=== PATIENT | male | born 1960 | race Caucasian/White ===

== ENCOUNTER 2016-06-19 23:21 | Emergency (ER) | payer OTHER ==
[~2016-06-19] VITALS: Ht 188 cm; Wt 93.6 kg
[~2016-06-19 23:21] MED LIST: BACT800T5 PO; CEPH-460 PO; LISI2.5T3 PO; MOTR200T4 PO
[2016-06-20 02:23] VITALS: BP 166/98; PULSE 94; RESP 12; TEMP 98.4; O2SAT 94
[2016-06-20 03:18] VITALS: BP 175/95; PULSE 82; RESP 12; TEMP 98.8; O2SAT 96
[2016-06-20 03:55] VITALS: BP 166/98; PULSE 94; RESP 18; TEMP 98.4; O2SAT 99
[2016-06-20] MEDS ORDERED: LISI-515 PO (03:56)
[2016-06-20] MEDS ORDERED: GLIP5TAB8 PO (03:56)
[2016-06-20] MEDS ORDERED: CLINDAMYCIN INJ 600 MG in SODIUM CHLORIDE 0.9% INJ 100 ML IV ONE (04:15)
[2016-06-20] MEDS ORDERED: ONDANSETRON HCL 4 MG/2 ML VIAL IV PUSH ONE (04:15)
[2016-06-20] MEDS ORDERED: SODIUM CHLOR 0.9% 1000 ML INJ 1,000 ML IV ONE (04:15)
[2016-06-20] MEDS ORDERED: KETOROLAC TROMETHAMINE 30 MG/ML (IVP) VIAL IVP ONE (04:15)
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
[2016-06-20 04:37] LABS: AUTOMATED NEUTROPHIL # 5.3 TH/MM3 (1.8-7.7); BASOPHIL # 0.3 TH/MM3 (0-0.2); BASOPHIL % 3.8 % (0.0-2.0); EOSINOPHIL # 0.4 TH/MM3 (0-0.4); EOSINOPHIL % 4.4 % (0.0-4.0); HEMATOCRIT 38.1 % (39.0-51.0); HEMO FLAGS DIFF FINAL; LYMPH % 23.8 % (9.0-44.0); MEAN CELL VOLUME 87.3 FL (80.0-100.0); MEAN CORPUSCULAR HGB CONC 34.3 % (32.0-36.0); MONO % 5.6 % (0.0-8.0); NEUT % 62.4 % (16.0-70.0); PLATELET COUNT 211 TH/MM3 (150-450); RED BLOOD COUNT 4.36 MIL/MM3 (4.50-5.90); RED CELL DISTRIBUTION WIDTH 13.4 % (11.6-17.2); WHITE BLOOD COUNT 8.5 TH/MM3 (4.0-11.0)
[2016-06-20 04:47] LABS: BICARBONATE 24.6 MEQ/L (21.0-32.0)
--- NOTE | 2016-06-20 04:53 | RADHPO ---
EXAM DATE/TIME: 06/20/2016 04:30 [facility] COMPARISON: FOOT LEFT COMPLETE ([id number]), February 19, 2016, 19:05. INDICATIONS : Open sores on left foot for over 6 months. Pain on dorsal surface of foot. MEDICAL HISTORY : Diabetes mellitus type II. Gout SURGICAL HISTORY : None. ENCOUNTER: Initial ACUITY: 4 - 6 months PAIN SCORE: 10/10 LOCATION: Left dorsal surface of foot FINDINGS: Two view examination of the left foot demonstrates diffuse soft tissue swelling. Arthritic changes of the midfoot and hindfoot. There is cortical thickening of the 2 through 5 metatarsals. There is irre gularity of the metatarsal heads greater 4 and 5. There is minimal fracture at the base of the fifth metatarsal, unchanged. CONCLUSION: 1. Nonspecific arthritic changes of the midfoot and hindfoot. 2. Minimal fracture at the base of the fifth metatarsal, unchanged. 3. Cortical thickening of the metatarsals likely stress phenomenon. Pradeep Keith MD on June 20, 2016 at 4:47 Board Certified Radiologist. This report was verified electronically.
[2016-06-20] MEDS ORDERED: POTASSIUM CHLORIDE 20 MEQ CONTROLLED RELEASE TAB PO ONE (05:30)
[2016-06-20] MEDS ORDERED: EXTR500C PO (06:03)
[2016-06-20] MEDS ORDERED: CLIN1CAP6 PO (06:03)
[2016-06-20 06:28] VITALS: BP 165/92; PULSE 84; RESP 18; O2SAT 97
--- NOTE | 2016-06-20 19:37 | EKG ---
Date Performed: 06/20/2016 Time Performed: 04:07:14 PTAGE: 55 years EKG: --- Warning: Data quality may affect interpretation --- Sinus rhythm . Consider left atrial abnormality Leftward axis Compared to prior tracing no significant change Bord lenka ECG PREVIOUS TRACING : 05/04/2016 16.55 DOCTOR: Simon Walters Interpretating Date/Time 06/20/2016 19:35:54
[2016-08-16] MEDS ORDERED: GLIP5TAB8 PO ×2 (13:18→13:19)
== END 2016-06-20 06:32 | disposition home or self-care (01) ==
LOC: PHED 23:21
DX: L03.116 Cellulitis of left lower limb (principal); B96.4 Proteus (mirabilis) (morganii) as the cause of diseases classified elsewhere; E11.40 Type 2 diabetes mellitus with diabetic neuropathy, unspecified; E11.621 Type 2 diabetes mellitus with foot ulcer; I10 Essential (primary) hypertension; Z79.84 Long term (current) use of oral hypoglycemic drugs
CPT/HCPCS: 73620; 80048; 85025; 85652; 86140; 87040; 87070; 87077; 87186; 93005; 96361; 96374; 96375; 99284; J1885; J2405; J7030

== ENCOUNTER 2016-06-23 20:49 | Emergency (ER) | payer OTHER ==
[~2016-06-23] VITALS: Ht 188 cm; Wt 91.2 kg
[~2016-06-23 20:49] MED LIST changes: -BACT800T5 PO; -CEPH-460 PO; +CLIN1CAP6 PO; +EXTR500C PO; +GLIP5TAB8 PO; +LISI-515 PO; -LISI2.5T3 PO; -MOTR200T4 PO
[2016-06-23 20:56] VITALS: BP 184/105; PULSE 84; RESP 20; TEMP 98.2; O2SAT 98
[2016-06-23 21:17] VITALS: BP 162/98; PULSE 82; RESP 18; TEMP 98.8; O2SAT 100
[2016-06-23] MEDS ORDERED: TRAM50TA PO (22:26)
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
[2016-08-16] MEDS ORDERED: GLIP5TAB8 PO ×2 (13:18→13:19)
== END 2016-06-23 22:41 | disposition home or self-care (01) ==
LOC: PHED 20:49 → PHEFT 22:41
DX: E11.621 Type 2 diabetes mellitus with foot ulcer (principal); I10 Essential (primary) hypertension; E11.40 Type 2 diabetes mellitus with diabetic neuropathy, unspecified; E78.00 Pure hypercholesterolemia, unspecified; Z79.84 Long term (current) use of oral hypoglycemic drugs; Z87.19 Personal history of other diseases of the digestive system; Z86.69 Personal history of other diseases of the nervous system and sense organs
CPT/HCPCS: 99282

== ENCOUNTER 2016-08-01 18:22 | Emergency (ER) | payer OTHER ==
[~2016-08-01] VITALS: Ht 188 cm; Wt 92.3 kg
[~2016-08-01 18:22] MED LIST changes: -CLIN1CAP6 PO; -EXTR500C PO; +TRAM50TA PO
[2016-08-01 18:43] VITALS: BP 165/106; PULSE 90; RESP 16; TEMP 98.7; O2SAT 99
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
[2016-08-01 22:05] VITALS: BP 186/100; PULSE 75; RESP 18; O2SAT 97
--- NOTE | 2016-08-01 22:39 | RADHPO ---
EXAM DATE/TIME: 08/01/2016 22:18 [facility] COMPARISON: FOOT LEFT LIMITED (2VWS), June 20, 2016, 4:30. INDICATIONS : Pain and swelling of left foot. Patient has a infection on plantar surface and lateral surface of le ft foot. MEDICAL HISTORY : Diabetes mellitus type II. SURGICAL HISTORY : None. ENCOUNTER: Initial ACUITY: >1 year PAIN SCORE: 8/10 LOCATION: Left foot FINDINGS: Overall appearance of the left foot is unchanged other than diminished soft tissue swelling dorsally. Arthritic changes of the midfoot and hindfoot are appreciated with cortical thickening of the metata rsals and the fracture base of the fifth metatarsal is healed. There is deformity of the articulation of the distal tarsal bones cuneiform and cuboid with the proximal metatarsals unchanged there CONCLUSION: Fracture base of the fifth metatarsal is healed. Chronic changes otherwise stable. Mark Diana MD on August 01, 2016 at 22:36 Board Certified Radiologist. This report was verified electronically.
[2016-08-01 23:20] VITALS: BP 163/95; PULSE 79; RESP 18; O2SAT 99
[2016-08-01] MEDS ORDERED: AMOX500C PO (23:20)
[2016-08-01] MEDS ORDERED: BACT800T5 PO (23:20)
[2016-08-01] MEDS ORDERED: SULFAMETHOXAZOLE-TRIMETHOPRIM DS 800-160 MG TAB PO ONE (23:30)
[2016-08-01] MEDS ORDERED: AMOXICILLIN/CLAVULANATE K 875 MG TAB PO ONE (23:30)
[2016-08-16] MEDS ORDERED: GLIP5TAB8 PO ×2 (13:18→13:19)
== END 2016-08-01 23:58 | disposition home or self-care (01) ==
LOC: PHED 18:22
DX: L03.116 Cellulitis of left lower limb (principal); I10 Essential (primary) hypertension; E78.00 Pure hypercholesterolemia, unspecified; Z91.14 Patient's other noncompliance with medication regimen; Z79.4 Long term (current) use of insulin
CPT/HCPCS: 73630; 86403; 87070; 87077; 87205; 99283

== ENCOUNTER 2016-08-04 15:42 | Inpatient (IN) | payer OTHER ==
[~2016-08-04] VITALS: Ht 188 cm; Wt 92.1 kg
[2016-08-04] VITALS (8 sets, daily range): BP systolic 132–194; BP diastolic 64–99; PULSE 93–111; RESP 18–20; TEMP 98.5–100.2; O2SAT 94–98
[~2016-08-04 15:42] MED LIST changes: +AMOX500C PO; +BACT800T5 PO; -TRAM50TA PO
[2016-08-04 16:26] LABS: BLOOD GAS VENOUS BASE EXCESS 2.2 mmol/L (-2-2); BLOOD GAS VENOUS HCO3 27 mmol/L (22-26); BLOOD GAS VENOUS O2 CONTENT 9.7 Vol % (9.0-17.0); BLOOD GAS VENOUS O2 HGB SAT 49 % (70-76); BLOOD GAS VENOUS PCO2 49 mmHg (44-48); BLOOD GAS VENOUS PO2 30 mmHg (35-40); BLOOD GAS VENOUS pH 7.36 (7.360-7.400); CRITICAL VALUE NO; TEMP CORR TO 98.6
[2016-08-04 16:27] LABS: DRAW SITE LT BRACHIAL; FIO2 21 %; STAT YES
[2016-08-04 16:33] LABS: AUTOMATED NEUTROPHIL # 5.8 TH/MM3 (1.8-7.7); BASOPHIL # 0.3 TH/MM3 (0-0.2); BASOPHIL % 4.5 % (0.0-2.0); BLOOD, URINE TRACE (NEG); EOSINOPHIL # 0.2 TH/MM3 (0-0.4); EOSINOPHIL % 2.6 % (0.0-4.0); HEMO FLAGS DIFF FINAL; KETONE, URINE NEG (NEG); LYMPH % 8.5 % (9.0-44.0); LYMPHOCYTE # 0.6 TH/MM3 (1.0-4.8); MEAN CELL VOLUME 86.4 FL (80.0-100.0); MEAN CORPUSCULAR HEMOGLOBIN 29.6 PG (27.0-34.0); MEAN CORPUSCULAR HGB CONC 34.3 % (32.0-36.0); MONO % 5.7 % (0.0-8.0); NEUT % 78.7 % (16.0-70.0); NITRITE,URINE NEG (NEG); PH, URINE 6.5 (5.0-8.5); PLATELET COUNT 170 TH/MM3 (150-450); RED BLOOD COUNT 4.75 MIL/MM3 (4.50-5.90); RED CELL DISTRIBUTION WIDTH 12.5 % (11.6-17.2); WHITE BLOOD COUNT 7.3 TH/MM3 (4.0-11.0)
[2016-08-04] MEDS: SODIUM CHLOR 0.9% 1000 ML INJ 1,000 ML IV SCH ×3 (16:33→21:07)
[2016-08-04 16:40] LABS: GLUCOSE,URINE 1000 OR GREATER mg/dL (NEG)
[2016-08-04 16:41] LABS: METHOD OF COLLECTION CLEAN CATCH
[2016-08-04 16:42] LABS: COMMENT (UR) CULT NOT INDICATED; CULTURE IF INDICATED CULT NOT INDICATED; RBC, URINE 0-3 /hpf (0-3); SQUAMOUS EPITHELIAL CELL URINE 0-5 /hpf (0-5); URINE COLOR STRAW (YELLW/STRAW)
[2016-08-04 17:02] LABS: CHLORIDE 104 MEQ/L (98-107); SODIUM (NA) 136 MEQ/L (136-145)
[2016-08-04 17:04] LABS: POTASSIUM 4.5 MEQ/L (3.5-5.1)
[2016-08-04 17:22] LABS: ALT (GPT) 27 U/L (12-78); ANION GAP 8 MEQ/L (5-15); AST (GOT) 32 U/L (15-37); BLOOD UREA NITROGEN 11 MG/DL (7-18); MAGNESIUM 1.9 MG/DL (1.5-2.5)
[2016-08-04 17:23] LABS: BETA-HYDROXYBUTYRATE 0.14 MMOL/L (0.00-0.39); GLOMERULAR FILTRATION RATE 80 ML/MIN (>89); TOTAL BILIRUBIN ADULT 0.9 MG/DL (0.2-1.0)
[2016-08-04 17:25] LABS: ALKALINE PHOSPHATASE 120 U/L (45-117)
[2016-08-04] MEDS ORDERED: LISINOPRIL 20 MG TAB PO ONE (18:00)
[2016-08-04] MEDS ORDERED: INSULIN HUMAN REGULAR 1,000 UNITS/10 ML VIAL SQ ONE (18:00)
[2016-08-04] MEDS ORDERED: CLINDAMYCIN INJ 600 MG in SODIUM CHLORIDE 0.9% INJ 100 ML IV ONE (18:15)
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
[2016-08-04] MEDS ORDERED: ACETAMINOPHEN 325 MG TAB PO ONE (18:45)
--- NOTE | 2016-08-04 18:46 | RADHPO ---
EXAM DATE/TIME: 08/04/2016 18:26 [facility] COMPARISON: FOOT LEFT LIMITED (2VWS), June 20, 2016, 4:30. INDICATIONS : Left foot pain today, history of non healing diabetic ulcers left foot MEDICAL HISTORY : Diabetes mellitus type II. diabetic ulcers, left foot fracture SURGICAL HISTORY : None. ENCOUNTER: Initial ACUITY: 1 day PAIN SCORE: 6/10 LOCATION: Left foot FINDINGS: Two view examination of the left foot demonstrates soft tissue swelling. There is an ulcer along the lateral left foot. No lytic destructive process. Cortical thickening involving the metatarsals 2 thro ugh 5 again seen. Minimal deformities of the fourth and fifth metatarsal heads again seen. Lucency in the base of the fifth metatarsal again seen. CONCLUSION: Soft tissue swelling with ulcer along the lateral left foot. Overall no change. Pradeep Keith MD on August 04, 2016 at 18:43 Board Certified Radiologist. This report was verified electronically.
[2016-08-04] MEDS ORDERED: SODIUM CHLOR 0.9% 1000 ML INJ 1,000 ML IV ONE (19:30)
[2016-08-04] MEDS ORDERED: GLUCAGON 1 MG/ML VIAL OTHER PRN (19:45)
[2016-08-04] MEDS ORDERED: DEXTROSE 50% IN WATER 50 ML VIAL(D50) IV PUSH PRN (19:45)
[2016-08-04] MEDS ORDERED: MORPHINE SULFATE 4 MG/ML INJ IV PRN (19:45)
[2016-08-04] MEDS ORDERED: ONDANSETRON HCL 4 MG/2 ML VIAL IVP PRN (19:45)
[2016-08-04] MEDS ORDERED: BISACODYL 10 MG SUPP PR PRN (19:45)
[2016-08-04] MEDS: SODIUM CHLORIDE 0.9% FLUSH 5 ML FLUSH FLUSH SCH (21:07)
[2016-08-04] MEDS: CEFEPIME INJ 1,000 MG in SODIUM CHLORIDE 0.9% INJ 100 ML IV SCH (21:07)
[2016-08-04] MEDS: HEPARIN SODIUM - SQ 10,000 UNITS/ML VIAL SQ SCH (21:08)
[2016-08-04] MEDS: INSULIN ASPART SUPPLEMENTAL SCALE SQ SCH (21:13)
[2016-08-04] MEDS: ACETAMINOPHEN/HYDROcodone 325 MG/5 MG TAB PO PRN (22:15)
[2016-08-05] VITALS (8 sets, daily range): BP systolic 144–190; BP diastolic 80–103; PULSE 70–111; RESP 18–20; TEMP 98.1–102.6; O2SAT 94–97
[2016-08-05] MEDS: CLINDAMYCIN INJ 900 MG in SODIUM CHLORIDE 0.9% INJ 100 ML IV SCH ×3 (01:06→18:49)
[2016-08-05] MEDS: ACETAMINOPHEN/HYDROcodone 325 MG/5 MG TAB PO PRN ×4 (05:55→20:52)
[2016-08-05] MEDS: SODIUM CHLOR 0.9% 1000 ML INJ 1,000 ML IV SCH ×3 (05:56→20:42)
[2016-08-05] MEDS: INSULIN ASPART SUPPLEMENTAL SCALE SQ SCH ×4 (05:57→20:51)
[2016-08-05 06:54] LABS: BASOPHIL % 0.2 % (0.0-2.0); EOSINOPHIL % 0.9 % (0.0-4.0); LYMPH % 7.1 % (9.0-44.0); LYMPHOCYTE # 0.3 TH/MM3 (1.0-4.8); MEAN CELL VOLUME 87.4 FL (80.0-100.0); MEAN CORPUSCULAR HEMOGLOBIN 30.5 PG (27.0-34.0); MONO % 7.6 % (0.0-8.0); NEUT % 84.2 % (16.0-70.0); RED BLOOD COUNT 4.01 MIL/MM3 (4.50-5.90); RED CELL DISTRIBUTION WIDTH 12.8 % (11.6-17.2); WHITE BLOOD COUNT 4.7 TH/MM3 (4.0-11.0)
[2016-08-05 07:01] LABS: HEMO FLAGS DIFF FINAL; PLATELET COUNT 137 TH/MM3 (150-450)
[2016-08-05 07:12] LABS: ALKALINE PHOSPHATASE 109 U/L (45-117); ALT (GPT) 34 U/L (12-78); ANION GAP 9 MEQ/L (5-15); AST (GOT) 38 U/L (15-37); BICARBONATE 22.9 MEQ/L (21.0-32.0); BLOOD UREA NITROGEN 7 MG/DL (7-18); CHLORIDE 107 MEQ/L (98-107); GLOMERULAR FILTRATION RATE 112 ML/MIN (>89); POTASSIUM 3.5 MEQ/L (3.5-5.1); SODIUM (NA) 139 MEQ/L (136-145); TOTAL BILIRUBIN ADULT 1.2 MG/DL (0.2-1.0)
[2016-08-05] MEDS: CEFEPIME INJ 1,000 MG in SODIUM CHLORIDE 0.9% INJ 100 ML IV SCH ×2 (08:03→20:40)
[2016-08-05] MEDS: SODIUM CHLORIDE 0.9% FLUSH 5 ML FLUSH FLUSH SCH ×2 (08:04→20:39)
[2016-08-05] MEDS: HEPARIN SODIUM - SQ 10,000 UNITS/ML VIAL SQ SCH ×2 (08:04→20:39)
[2016-08-05] MEDS: ACETAMINOPHEN 325 MG TAB PO PRN ×2 (10:45→16:35)
--- NOTE | 2016-08-05 12:39 | EKG ---
Date Performed: 08/04/2016 Time Performed: 16:30:36 PTAGE: 55 years EKG: Sinus tachycardia Normal ECG except for rate Compared to prior tracing no significant federica plummer PREVIOUS TRACING : 06/20/2016 04.07 DOCTOR: Guzman Lennon Interpretating Date/Time 08/05/2016 12:35:53
--- NOTE | 2016-08-05 13:15 | HHI.HP ---
cc: Albina Norris MD [facility] Primary Care Physician Albina Norris MD Admission Diagnosis Sepsis secondary to left foot cellulitis Diagnoses: Chief Complaint: Left foot infection and fever Travel History International Travel<30 Days: No Contact w/Intl Traveler <30 Da: No Traveled to Known Affected Are: No Sepsis Criteria SIRS Criteria (2 or more): Temp > 100.9 or < 96.8, Heart rate over 90, RR > 20 or PaCO2 < 32 Sepsis Criteria (SIRS+source): Infect source susp/known Criteria Outcome: Meets sepsis criteria History of Present Illness This patient is a 55 year-old gentleman who presents to the emergency room with chronic left foot infection for the last 2 years but today has had increasing fever and pain. The patient has poor adherence to medical treatment planning. He has not filled his antibiotics which were prescribed in his emergency room visit a few days ago. He does not see his medical front desk coordinator. Patient has also complained of sore throat and has a fever 101.7 today. Patient does not have leukocytosis and has had tachycardia and some tachypnea while he was here. Patient is admitted through the emergency room for signs and symptoms of sepsis likely secondary to his foot versus upper respiratory tract symptoms. Patient did have cough with sore throat and has had difficulty swallowing because of this. He is not homeless but does have difficulty with transportation and depends on friends to take him to appointments and to run errands. He has been walking on his left foot despite recommendations to wear his cam boot in the past. Patient is admitted to the hospital for these reasons Review of Systems Constitutional: COMPLAINS OF: Fatigue, Fever, DENIES: Diaphoretic episodes, Weight gain, Weight loss, Chills, Dizziness, Change in appetite, Night Sweats Endocrine: DENIES: Heat/cold intolerance, Polydipsia, Polyuria, Polyphagia Eyes: DENIES: Blurred vision, Diplopia, Eye inflammation, Eye pain, Vision loss , Photosensitivity, Double Vision Ears, nose, mouth, throat: DENIES: Tinnitus, Hearing loss, Vertigo, Nasal discharge, Oral lesions, Throat pain, Hoarseness, Ear Pain, Running Nose, Epistaxis, Sinus Pain, Toothache, Odynophagia Respiratory: COMPLAINS OF: Cough, DENIES: Apneas, Snoring, Wheezing, Hemoptysis, Sputum production Cardiovascular: DENIES: Chest pain, Palpitations, Syncope, Dyspnea on Exertion , PND, Lower Extremity Edema, Orthopnea, Claudication Gastrointestinal: DENIES: Abdominal pain, Black stools, Bloody stools, Constipation, Diarrhea, Nausea, Vomiting, Difficulty Swallowing, Anorexia Genitourinary: DENIES: Sexual dysfunction, Urinary frequency, Urinary incontinence, Urgency, Hematuria, Dysuria, Nocturia, Penile Discharge, Testicular Pain, Testicular Swelling Musculoskeletal: DENIES: Joint pain, Muscle aches, Stiffness, Joint Swelling, Back pain, Neck pain Integumentary: DENIES: Abnormal pigmentation, Nail changes, Pruritus, Rash Hematologic/lymphatic: DENIES: Bruising, Lymphadenopathy Immunologic/allergic: DENIES: Eczema, Urticaria Neurologic: DENIES: Abnormal gait, Headache, Localized weakness, Paresthesias, Seizures, Speech Problems, Tremor, Poor Balance Psychiatric: DENIES: Anxiety, Confusion, Mood changes, Depression, Hallucinations, Agitation, Suicidal Ideation, Homicidal Ideation, Delusions Past Family Social History Past Medical History Diabetes Left foot ulcer for 2 years Hypertension Past Surgical History Craniotomy Reported Medications Reviewed in the medical record, on amoxicillin recently Allergies: Coded Allergies: No Known Allergies (Verified , 08/04/16) Active Ordered Medications Reviewed in the medical record Family History Mother of lung cancer, father had lung cancer Social History No current tobacco or alcohol dependency, lives alone Physical Exam Vital Signs Vital Signs Date Time Temp Pulse Resp B/P Pulse Ox O2 Delivery O2 Flow Rate FiO2 08/05/16 12:00 100.2 102 20 148/88 96 08/05/16 10:30 101.7 08/05/16 08:00 98.9 98 20 154/85 96 08/05/16 04:00 98.1 70 18 144/80 97 08/05/16 00:00 99.9 96 20 156/96 97 08/04/16 21:39 95 08/04/16 21:30 98.5 93 20 148/81 98 08/04/16 19:50 132/64 08/04/16 19:44 99.8 104 146/73 94 Room Air 08/04/16 18:36 100.2 111 20 177/93 98 08/04/16 17:35 110 20 192/99 98 08/04/16 16:34 109 20 194/97 97 08/04/16 15:45 99.5 108 18 188/94 98 Physical Exam GENERAL: This is a well-nourished, well-developed patient, who is ill-appearing. SKIN: No rashes, ecchymoses or lesions. Cool and dry. HEAD: Atraumatic. Normocephalic. No temporal or scalp tenderness. EYES: Pupils equal round and reactive. Extraocular motions intact. No scleral icterus. No injection or drainage. ENT: Nose without bleeding, purulent drainage or septal hematoma. Throat without erythema, tonsillar hypertrophy or exudate. Uvula midline. Airway patent. NECK: Trachea midline. No JVD or lymphadenopathy. Supple, nontender, no meningeal signs. CARDIOVASCULAR: Regular rate and rhythm without murmurs, gallops, or rubs. RESPIRATORY: Clear to auscultation. Breath sounds equal bilaterally. No wheezes , rales, or rhonchi. GASTROINTESTINAL: Abdomen soft, non-tender, nondistended. No hepato-splenomegaly , or palpable masses. No guarding. MUSCULOSKELETAL: Left foot erythema notable and swelling notable. Patient with difficulty ambulating on the foot. Other 3 Extremities without clubbing, cyanosis, or edema. No joint tenderness, effusion, or edema noted. No calf tenderness. Negative Homans sign bilaterally. NEUROLOGICAL: Awake and alert. Cranial nerves II through XII intact. Motor and sensory grossly within normal limits. Five out of 5 muscle strength in all muscle groups. Normal speech. Laboratory Laboratory Tests Test 08/04/16 08/04/16 08/04/16 08/04/16 16:20 16:21 16:40 19:40 White Blood Count 7.3 Red Blood Count 4.75 Hemoglobin 14.1 Hematocrit 41.0 Mean Corpuscular Volume 86.4 Mean Corpuscular Hemoglobin 29.6 Mean Corpuscular Hemoglobin 34.3 Concent Red Cell Distribution Width 12.5 Platelet Count 170 Mean Platelet Volume 9.6 Neutrophils (%) (Auto) 78.7 Lymphocytes (%) (Auto) 8.5 Monocytes (%) (Auto) 5.7 Eosinophils (%) (Auto) 2.6 Basophils (%) (Auto) 4.5 Neutrophils # (Auto) 5.8 Lymphocytes # (Auto) 0.6 Monocytes # (Auto) 0.4 Eosinophils # (Auto) 0.2 Basophils # (Auto) 0.3 CBC Comment DIFF FINAL Differential Comment Urine Collection Type CLEAN CATCH Urine Color STRAW Urine Turbidity CLEAR Urine pH 6.5 Urine Specific [place] 1.030 Urine Protein TRACE Urine Glucose (UA) 1000 OR GREATER Urine Ketones NEG Urine Occult Blood TRACE Urine Nitrite NEG Urine Bilirubin NEG Urine Leukocyte Esterase NEG Urine RBC 0-3 Urine Squamous Epithelial 0-5 Cells Microscopic Urinalysis Comment CULT NOT INDICATED Urine Collection Time 1600 Blood Gas Puncture Site LT BRACHIAL Blood Gas Patient Temperature 98.6 Venous Blood pH 7.36 Venous Blood Partial Pressure 49 CO2 Venous Blood Partial Pressure 30 O2 Venous Blood HCO3 27 Venous Blood Oxygen Saturation 49 Venous Blood Oxygen Content 9.7 Venous Blood Base Excess 2.2 Oxygen Delivery Device NONE Blood Gas Inspired Oxygen 21 Sodium Level 136 Potassium Level 4.5 Chloride Level 104 Carbon Dioxide Level 24.0 Anion Gap 8 Blood Urea Nitrogen 11 Creatinine 0.97 Estimat Glomerular Filtration 80 Rate Random Glucose 329 Calcium Level 8.3 Phosphorus Level 2.6 Magnesium Level 1.9 Total Bilirubin 0.9 Aspartate Amino Transf 32 (AST/SGOT) Alanine Aminotransferase 27 (ALT/SGPT) Alkaline Phosphatase 120 Troponin I LESS THAN 0.02 Total Protein 7.9 Albumin 3.4 Lipase 78 B-Hydroxybutyrate 0.14 Lactic Acid Level 1.2 Test 08/05/16 05:40 White Blood Count 4.7 Red Blood Count 4.01 Hemoglobin 12.3 Hematocrit 35.0 Mean Corpuscular Volume 87.4 Mean Corpuscular Hemoglobin 30.5 Mean Corpuscular Hemoglobin 35.0 Concent Red Cell Distribution Width 12.8 Platelet Count 137 Mean Platelet Volume 9.6 Neutrophils (%) (Auto) 84.2 Lymphocytes (%) (Auto) 7.1 Monocytes (%) (Auto) 7.6 Eosinophils (%) (Auto) 0.9 Basophils (%) (Auto) 0.2 Neutrophils # (Auto) 4.0 Lymphocytes # (Auto) 0.3 Monocytes # (Auto) 0.4 Eosinophils # (Auto) 0.0 Basophils # (Auto) 0.0 CBC Comment DIFF FINAL Differential Comment Sodium Level 139 Potassium Level 3.5 Chloride Level 107 Carbon Dioxide Level 22.9 Anion Gap 9 Blood Urea Nitrogen 7 Creatinine 0.73 Estimat Glomerular Filtration 112 Rate Random Glucose 212 Calcium Level 7.9 Total Bilirubin 1.2 Aspartate Amino Transf 38 (AST/SGOT) Alanine Aminotransferase 34 (ALT/SGPT) Alkaline Phosphatase 109 Total Protein 6.8 Albumin 3.1 Date/Time Procedure Status Source Growth 08/04/16 18:20 Aerobic Blood Culture - Preliminary Resulted Blood Peripheral NO GROWTH IN 1 DAY 08/04/16 18:20 Anaerobic Blood Culture - Preliminary Resulted Blood Peripheral NO GROWTH IN 1 DAY Result Diagram: 08/05/16 0540 08/05/16 0540 Imaging Last Impressions Foot X-Ray 08/04/16 0000 Signed Impressions: Service Date/Time: Thursday, August 04, 2016 18:26 - CONCLUSION: Soft tissue swelling with ulcer along the lateral left foot. Overall no change. Pradeep Keith MD Assessment and Plan Problem List: (1) Diabetic ulcer of left foot ICD Code: E11.621 Status: Chronic Plan: Continue Zosyn Follow-up with podiatry MRI of the foot pending to rule out osteomyelitis (2) Sepsis ICD Code: A41.9 Status: Resolved Plan: likely due to left foot cellulitis v viral syndrome Cont empiric cefepime and clindamycin, add Zosyn (3) Diabetes ICD Code: E11.9 Status: Acute Plan: We'll continue with glipizide, sliding scale as needed hg a1c pending Physician Certification 2 Midnight Certification Type: Admission for Inpatient Services Order for Inpatient Services The services are ordered in accordance with Medicare regulations or non- Medicare payer requirements, as applicable. In the case of services not specified as inpatient-only, they are appropriately provided as inpatient services in accordance with the 2-midnight benchmark. Estimated LOS (days): 3 3 days is the estimated time the patient will need to remain in the hospital, assuming treatment plan goals are met and no additional complications. Post-Hospital Plan: Home Problem Qualifiers (1) Sepsis: Qualified Code: A41.9 - Sepsis, due to unspecified organism Hawa Flores MD Aug 05, 2016 13:15
[2016-08-05 14:16] LABS: AUTOMATED NEUTROPHIL # 4.9 TH/MM3 (1.8-7.7); BASOPHIL % 0.4 % (0.0-2.0); EOSINOPHIL % 0.1 % (0.0-4.0); HEMATOCRIT 35.2 % (39.0-51.0); HEMO FLAGS DIFF FINAL; LYMPH % 9.1 % (9.0-44.0); LYMPHOCYTE # 0.5 TH/MM3 (1.0-4.8); MEAN CELL VOLUME 87.9 FL (80.0-100.0); MEAN CORPUSCULAR HEMOGLOBIN 29.7 PG (27.0-34.0); MEAN CORPUSCULAR HGB CONC 33.7 % (32.0-36.0); MONO % 4.7 % (0.0-8.0); NEUT % 85.7 % (16.0-70.0); PLATELET COUNT 120 TH/MM3 (150-450); RED BLOOD COUNT 4.01 MIL/MM3 (4.50-5.90); RED CELL DISTRIBUTION WIDTH 13.2 % (11.6-17.2); WHITE BLOOD COUNT 5.7 TH/MM3 (4.0-11.0)
[2016-08-05] MEDS: PIPERACIL-TAZO 4.5 GM PREMIX 100 ML IV SCH ×2 (15:35→23:14)
[2016-08-05] MEDS: guaiFENesin/DEXTROMETHORPHAN 200 MG/20 MG/10 ML CUP PO PRN (17:13)
[2016-08-05 17:22] LABS: HEMOGLOBIN A1b 0.7 %; HEMOGLOBIN LA1C 2.3 %; HEMOGLOBIN P3 4.1 %
--- NOTE | 2016-08-05 18:34 | RADHPO ---
EXAM DATE/TIME: 08/05/2016 16:49 [facility] COMPARISON: No previous studies available for comparison. INDICATIONS : Short of breath. MEDICAL HISTORY : None. SURGICAL HISTORY : None. ENCOUNTER: Subsequent ACUITY: 1 week PAIN SCORE: 5/10 LOCATION: Bilateral upper chest. FINDINGS: There is moderate peribronchial thickening present. There is minimal air space disease present in both lung bases. The heart and pulmonary vascularity are normal. Portion of the bony ske leton visualized is unremarkable. CONCLUSION: 1. Moderate peribronchial thickening as described above. 2. Patchy air space disease in both lung bases. Luca Tello MD FACR on August 05, 2016 at 17:03 Board Certified Radiologist. This report was verified electronically.
[2016-08-05] MEDS ORDERED: MUPIROCIN 2% OINT 22 GM TUBE TOPICAL ONE (19:30)
[2016-08-05] MEDS: LISINOPRIL 20 MG TAB PO SCH (20:51)
[2016-08-05] MEDS ORDERED: IOHEXOL 350 MG/ML 10 ML VIAL (for RAD DIAG) IV ONE (22:03)
--- NOTE | 2016-08-05 23:10 | RADHPO ---
EXAM DATE/TIME: 08/05/2016 21:33 [place] COMPARISON: CT FOOT LEFT W CONTRAST, October 06, 2015, 13:00. INDICATIONS : Left foot osteomyelitis IV CONTRAST: 67 cc Omnipaque 350 (iohexol) IV RADIATION DOSE: 6.11 CTDIvol (mGy) MEDICAL HISTORY : Hypertension. Diabetes mellitus type 1. SURGICAL HISTORY : None. ENCOUNTER: Initial ACUITY: 1 day PAIN SCALE: 5/10 LOCATION: Left foot TECHNIQUE: Volumetric scanning of the foot was performed. Using automated exposure control and adjustment of th e mA and/or kV according to patient size, radiation dose was kept as low as reasonably achievable to obtain optimal diagnostic quality images. FINDINGS: Comparison is October 06, 2015. There is a focal area of soft tissue swelling in the lateral foot mostl y overlying the base of the fifth metatarsal characteristic of cellulitis. No discrete or drainable f luid collections are present. There is a remote fracture of the proximal left fifth metatarsal with a residual angular deformity and periosteal new bone formation that is similar to September 2015. No new b aviva destructive changes are seen to suggest osteomyelitis. There is advanced chronic arthropathy damien cially of the midfoot and hindfoot involving the subtalar joint and intertarsal joints. This is also similar to previous examination. No new fracture or dislocation. CONCLUSION: 1. Cellulitis of the lateral foot without focal bony destruction seen. No CT evidence for acute osteo myelitis. 2. Chronic arthropathy of the left foot with remote healed fracture of proximal fifth metatarsal. Malik Alvarenga MD on August 05, 2016 at 22:59 Board Certified Radiologist. This report was verified electronically.
[2016-08-05] MEDS: SODIUM CHLORIDE 0.9% FLUSH 5 ML FLUSH FLUSH PRN (23:14)
[2016-08-06] VITALS: BP 155/83; PULSE 98; RESP 20; TEMP 100.8; O2SAT 91
[2016-08-06] MEDS: CLINDAMYCIN INJ 900 MG in SODIUM CHLORIDE 0.9% INJ 100 ML IV SCH (01:54)
[2016-08-06] MEDS: SODIUM CHLORIDE 0.9% FLUSH 5 ML FLUSH FLUSH PRN ×4 (01:57→23:51)
[2016-08-06] MEDS: ACETAMINOPHEN/HYDROcodone 325 MG/5 MG TAB PO PRN ×3 (02:55→20:59)
[2016-08-06 04:00] VITALS: BP 146/80; PULSE 93; RESP 18; TEMP 99.8; O2SAT 92
[2016-08-06] MEDS: PIPERACIL-TAZO 4.5 GM PREMIX 100 ML IV SCH ×3 (06:17→23:49)
[2016-08-06] MEDS: INSULIN ASPART SUPPLEMENTAL SCALE SQ SCH ×4 (06:22→21:00)
[2016-08-06] MEDS: glipiZIDE 5 MG TAB PO SCH ×2 (06:22→15:29)
--- NOTE | 2016-08-06 07:31 | MB ---
cc: YARI NEWTON DATE OF CONSULTATION: 08/05/2016 CHIEF COMPLAINT Left foot ulcerations with cellulitis. HISTORY OF PRESENT ILLNESS The patient is known to me from previous admission. I believe he has been admitted six or eight times over the last year for chronic foot infections. He has had the wounds on his feet the last two years but over the last few days states he has got weak and feverish and states he passed out in a library and that is what made him come to the ER. He does not follow up routinely if at all. He occasionally sees Dr. Norris for prescriptions. He states the left foot is not painful because he has neuropathy but he has a very sore throat. He states that the left foot has gotten very swollen but is now back to his sort of normal baseline level. He has felt feverish but denies any nausea, vomiting, chills, pain or shortness of breath. PAST MEDICAL HISTORY 1. Diabetes. 2. Chronic foot ulcers. 3. Hypertension. MEDICATIONS Please see list. ALLERGIES No known drug allergies. FAMILY HISTORY Noncontributory. SOCIAL HISTORY The patient denies tobacco or alcohol dependency. Lives at home alone. VITAL SIGNS Temperature 101.6. T-max 102.6. Pulse 106, respiratory rate 20, blood pressure 173/85. Pulse ox 94% O2 on room air. LABORATORY DATA White count 5.7, hemoglobin 11.9, hematocrit 35.2, platelets 120. Sodium 139, potassium 3.5, chloride 107, carbon dioxide 22.9, glucose 212, hemoglobin A1c 8.5. Blood cultures negative x1 day. Wound cultures pending. IMAGING DATA Foot x-rays negative for gas in the soft tissue, negative for signs of cortical erosion. No changes from previous radiographs. PHYSICAL EXAMINATION The patient has palpable DP and PT pulses. Capillary fill time is less than 3 seconds. Gross sensation severely diminished. Right foot is unremarkable. Left foot has a bulbous appearance on the plantar lateral aspect which the patient states is baseline. He has a heavy hypertrophic callus at the plantar lateral base of the fifth metatarsal. Upon debridement no open ulceration is noted. On the plantar central foot there is an ulceration of 0.5 x 0.5 x 0.5 cm. Upon bedside incision and drainage there was purulence noted, but no deep probing, no exposed bone. The base of the wound is granular. There is a marking where cellulitis extended out to the dorsal central aspect of the foot, however, at this time it is only periwound erythema with minimal warmth. PROCEDURE At bedside the foot was cleansed and draped. Both plantar left foot wounds were debrided. The lateral wound was not impressive. The central wound upon incision had approximately 3 cc of purulent drainage which was cultured at bedside. The overlying hypertrophic tissue was removed. The base of the wound was curetted free of all inflammatory debris. It was cleaned with Betadine and sterile water and dressed appropriately. ASSESSMENT AND PLAN 1. Left foot ulceration with resolving cellulitis. - Daily wound care orders placed for nursing staff. - Wound cultures pending. - Cellulitis continues to resolve and is trending down. - Will continue to monitor vital signs. - The patient has an offloading CAM boot and can weight bear as tolerated in this boot. - Will follow intermittently. Yari ORDONEZ/LIZ /7:22 PM /7:19 AM MARY
[2016-08-06 08:20] VITALS: BP 135/83; PULSE 93; RESP 18; TEMP 98.9; O2SAT 93
[2016-08-06] MEDS: LISINOPRIL 20 MG TAB PO SCH ×2 (09:37→20:59)
[2016-08-06] MEDS: SODIUM CHLORIDE 0.9% FLUSH 5 ML FLUSH FLUSH SCH ×2 (09:37→20:58)
[2016-08-06] MEDS: HEPARIN SODIUM - SQ 10,000 UNITS/ML VIAL SQ SCH ×2 (09:37→20:59)
--- NOTE | 2016-08-06 10:09 | HHI.PR ---
Subjective Remarks Patient seen and evaluated today in follow-up for fever with sepsis and for left foot infection. Now found to have pneumonia. Doing better today. MAXIMUM TEMPERATURE 100.8 Objective Vitals Vital Signs Date Time Temp Pulse Resp B/P Pulse Ox O2 Delivery O2 Flow Rate FiO2 08/06/16 08:20 98.9 93 18 135/83 93 08/06/16 04:00 99.8 93 18 146/80 92 08/06/16 00:00 100.8 98 20 155/83 91 08/05/16 20:00 100.1 111 20 190/103 08/05/16 20:00 108 08/05/16 18:00 101.6 08/05/16 16:00 102.6 106 20 173/85 94 08/05/16 12:00 100.2 102 20 148/88 96 08/05/16 10:30 101.7 I/O 08/05/16 08/05/16 08/05/16 08/06/16 08/06/16 08/06/16 07:00 15:00 23:00 07:00 15:00 23:00 Intake Total 1009 ml 650 ml 955 ml 1762 ml Output Total 1300 ml Balance -291 ml 650 ml 955 ml 1762 ml Intake Oral 240 ml 650 ml 840 ml IV Total 769 ml 955 ml 922 ml Output Urine Total 1300 ml # Voids 2 3 # Bowel Movements 1 0 0 Result Diagram: 08/05/16 1405 08/05/16 0540 Objective Remarks GENERAL: This is a well-nourished, well-developed patient, in no apparent distress. CARDIOVASCULAR: Regular rate and rhythm without murmurs, gallops, or rubs. RESPIRATORY: Clear to auscultation. Breath sounds equal bilaterally. No wheezes , rales, or rhonchi. GASTROINTESTINAL: Abdomen soft, non-tender, nondistended. Normal active bowel sounds MUSCULOSKELETAL: Left foot erythema improved, Extremities without clubbing, cyanosis, or edema. NEURO: Alert & Oriented x4 to person, place, time, situation. Moves all ext x4 A/P Problem List: (1) Diabetic ulcer of left foot ICD Code: E11.621 Status: Chronic Plan: Continue Zosyn today, changed to Augmentin tomorrow Shows no osteomyelitis status post debridement at the bedside by podiatry (2) Sepsis ICD Code: A41.9 Status: Resolved Plan: likely due to left foot cellulitis v pneumonia Cont empiric azithromycin and vancomycin, and Zosyn (3) Diabetes ICD Code: E11.9 Status: Acute Plan: We'll continue with glipizide, sliding scale as needed hg a1c 8.5 Discharge Planning Likely discharge home in a.m. on oral medications Problem Qualifiers (1) Sepsis: Qualified Code: A41.9 - Sepsis, due to unspecified organism Hawa Flores MD Aug 06, 2016 10:09
[2016-08-06] MEDS: AZITHROMYCIN 250 MG TAB PO SCH (10:30)
[2016-08-06] MEDS: VANCOMYCIN INJ 1,000 MG in SODIUM CHLOR 0.9% 250 ML INJ 250 ML IV SCH ×2 (10:31→22:38)
[2016-08-06] MEDS: guaiFENesin/DEXTROMETHORPHAN 200 MG/20 MG/10 ML CUP PO PRN ×2 (10:36→21:08)
[2016-08-06] MEDS: SODIUM CHLOR 0.9% 1000 ML INJ 1,000 ML IV SCH ×2 (11:43→21:00)
[2016-08-06] MEDS: ACETAMINOPHEN 325 MG TAB PO PRN ×2 (11:48→23:49)
[2016-08-06 12:36] VITALS: BP 135/76; PULSE 84; RESP 17; TEMP 99; O2SAT 93
[2016-08-06 15:56] VITALS: BP 135/60; PULSE 77; TEMP 98; O2SAT 96
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
[2016-08-06 20:00] VITALS: BP 173/100; PULSE 91; RESP 18; TEMP 99.7; O2SAT 95
[2016-08-07] VITALS: BP 140/74; PULSE 91; RESP 18; TEMP 100.2; O2SAT 93
[2016-08-07 04:00] VITALS: TEMP 98.8
[2016-08-07] MEDS: ACETAMINOPHEN/HYDROcodone 325 MG/5 MG TAB PO PRN (04:28)
[2016-08-07] MEDS: glipiZIDE 5 MG TAB PO SCH (06:27)
[2016-08-07] MEDS: PIPERACIL-TAZO 4.5 GM PREMIX 100 ML IV SCH (06:28)
[2016-08-07] MEDS: INSULIN ASPART SUPPLEMENTAL SCALE SQ SCH ×2 (06:28→06:29)
[2016-08-07] MEDS: SODIUM CHLORIDE 0.9% FLUSH 5 ML FLUSH FLUSH PRN (06:29)
[2016-08-07] MEDS: SODIUM CHLOR 0.9% 1000 ML INJ 1,000 ML IV SCH (06:29)
[2016-08-07 08:00] VITALS: BP 144/86; PULSE 91; RESP 20; TEMP 99; O2SAT 95
[2016-08-07] MEDS ORDERED: AZIT500T2 PO (10:08)
[2016-08-07] MEDS ORDERED: AUGM875T PO (10:08)
[2016-08-07] MEDS ORDERED: HYDR-3516 PO (10:08)
--- NOTE | 2016-08-07 10:20 | HHI.DCPOC ---
Discharge Care Plan Diagnosis: (1) Sepsis (2) Diabetic ulcer of left foot (3) Pneumonia Goals to Promote Your Health * To prevent worsening of your condition and complications * To maintain your health at the optimal level Directions to Meet Your Goals Take your medications as prescribed Follow your dietary instruction Follow activity as directed Keep your appointments as scheduled Take your immunizations and boosters as scheduled If your symptoms worsen call your PCP, if no PCP go to Urgent Care Center or Emergency Room Smoking is Dangerous to Your Health. Avoid second hand smoke Call the 24-hour hour crisis hotline for domestic abuse at Hawa Flores MD Aug 07, 2016 10:20
[2016-08-07] MEDS ORDERED: MUPI2OIN TOPICAL (10:26)
--- NOTE | 2016-08-07 10:26 | HHI.DS ---
cc: Albina Norris MD Discharge Summary Admission Date Aug 04, 2016 at 19:58 Discharge Date: Aug 07, 2016 Admitting Diagnosis Sepsis secondary to left foot cellulitis (1) Diabetic ulcer of left foot ICD Code: E11.621 (2) Sepsis ICD Code: A41.9 (3) Diabetes ICD Code: E11.9 Procedures Bedside I&D by podiatry Brief History - From Admission This patient is a 55 year-old gentleman who presents to the emergency room with chronic left foot infection for the last 2 years but today has had increasing fever and pain. The patient has poor adherence to medical treatment planning. He has not filled his antibiotics which were prescribed in his emergency room visit a few days ago. 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 Patient has also complained of sore throat and has a fever 101.7 today. Patient does not have leukocytosis and has had tachycardia and some tachypnea while he was here. Patient is admitted through the emergency room for signs and symptoms of sepsis likely secondary to his foot versus upper respiratory tract symptoms. Patient did have cough with sore throat and has had difficulty swallowing because of this. He is not homeless but does have difficulty with transportation and depends on friends to take him to appointments and to run errands. He has been walking on his left foot despite recommendations to wear his cam boot in the past. Patient is admitted to the hospital for these reasons CBC/BMP: 08/05/16 1405 08/05/16 0540 Significant Findings Laboratory Tests Test 08/04/16 08/04/16 08/04/16 08/05/16 16:20 16:21 16:40 05:40 Neutrophils (%) (Auto) 78.7 % 84.2 % (16.0-70.0) (16.0-70.0) Lymphocytes (%) (Auto) 8.5 % 7.1 % (9.0-44.0) (9.0-44.0) Basophils (%) (Auto) 4.5 % (0.0-2.0) Lymphocytes # (Auto) 0.6 TH/MM3 0.3 TH/MM3 (1.0-4.8) (1.0-4.8) Basophils # (Auto) 0.3 TH/MM3 (0-0.2) Urine Glucose (UA) 1000 OR GREATER mg/dL (NEG) Urine Occult Blood TRACE (NEG) Venous Blood Partial Pressure 49 mmHg (44-48) CO2 Venous Blood Partial Pressure 30 mmHg (35-40) O2 Venous Blood HCO3 27 mmol/L (22-26) Venous Blood Oxygen Saturation 49 % (70-76) Venous Blood Base Excess 2.2 mmol/L (-2-2) Estimat Glomerular Filtration 80 ML/MIN (>89) Rate Random Glucose 329 MG/DL 212 MG/DL (74-106) (74-106) Calcium Level 8.3 MG/DL 7.9 MG/DL (8.5-10.1) (8.5-10.1) Alkaline Phosphatase 120 U/L (45-117) Troponin I LESS THAN 0.02 NG/ML (0.02-0.05) Red Blood Count 4.01 MIL/MM3 (4.50-5.90) Hemoglobin 12.3 GM/DL (13.0-17.0) Hematocrit 35.0 % (39.0-51.0) Platelet Count 137 TH/MM3 (150-450) Total Bilirubin 1.2 MG/DL (0.2-1.0) Aspartate Amino Transf 38 U/L (15-37) (AST/SGOT) Albumin 3.1 GM/DL (3.4-5.0) Test 08/05/16 14:05 Red Blood Count 4.01 MIL/MM3 (4.50-5.90) Hemoglobin 11.9 GM/DL (13.0-17.0) Hematocrit 35.2 % (39.0-51.0) Platelet Count 120 TH/MM3 (150-450) Neutrophils (%) (Auto) 85.7 % (16.0-70.0) Lymphocytes # (Auto) 0.5 TH/MM3 (1.0-4.8) Hemoglobin A1c 8.5 % (4.3-6.0) Imaging Last Impressions Lower Extremity CT 08/05/16 0000 Signed Impressions: Service Date/Time: Friday, August 05, 2016 21:33 - CONCLUSION: 1. Cellulitis of the lateral foot without focal bony destruction seen. No CT evidence for acute osteomyelitis. 2. Chronic arthropathy of the left foot with remote healed fracture of proximal fifth metatarsal. Malik Alvarenga MD Foot X-Ray 08/04/16 0000 Signed Impressions: Service Date/Time: Thursday, August 04, 2016 18:26 - CONCLUSION: Soft tissue swelling with ulcer along the lateral left foot. Overall no change. Pradeep Keith MD PE at Discharge GENERAL: This is a well-nourished, well-developed patient, in no apparent distress. CARDIOVASCULAR: Regular rate and rhythm without murmurs, gallops, or rubs. RESPIRATORY: Clear to auscultation. Breath sounds equal bilaterally. No wheezes , rales, or rhonchi. GASTROINTESTINAL: Abdomen soft, non-tender, nondistended. Normal active bowel sounds MUSCULOSKELETAL: Left foot erythema improved, Extremities without clubbing, cyanosis, or edema. NEURO: Alert & Oriented x4 to person, place, time, situation. Moves all ext x4 Pt update on day of discharge This patient is seen today in follow-up for pneumonia with sepsis and better. Low-grade temperature. Tolerating current antibiotics and diet. Discharge plans discussed with patient who is agreeable. Hospital Course A 55-year-old gentleman came to the hospital with complaints of left foot ulcer and feeling poorly. He was found to be septic with pneumonia which was treated with several days of IV antibiotics. He was also seen by podiatry and had a bedside I&D of his foot. Patient has no evidence of osteomyelitis and will need to continue oral antibiotics for gram-negative rods seen and culture. Patient declined [facility] in lieu of doing his own dressing changes Pt Condition on Discharge: Good Discharge Disposition: Discharge Home Discharge Time: > 30 minutes Discharge Instructions DIET: Follow Instructions for: Diabetic Diet Activities you can perform: Regular-No Restrictions Follow up Referrals: PCP Follow-up - 1 Week Podiatry - 1 Week with Yari Moody DPM New Medications: Amoxicillin-Clavulanate (Augmentin) 875-125 mg Tab 875 MG PO BID not for use in CrCl <30 ml/min. Infection #10 Ref 0 TAB Azithromycin (Azithromycin) 500 Mg Tab 500 MG PO DAILY Infection #5 Ref 0 TAB Mupirocin Topical (Mupirocin Topical) 2 % Oint 1 APPLIC TOPICAL BID Mgmt Bacterial Infection #22 Ref 0 GM Hydrocodone-Acetaminophen (Hydrocodone-Acetaminophen) 5-325 mg Tab 1 TAB PO Q4H PRN pain #30 TAB Continued Medications: Glipizide (Glipizide) 5 Mg Tab 5 MG PO BIDAC Take 30 minutes before a meal Blood Sugar Management #60 Ref 0 TAB Lisinopril (Lisinopril) 20 Mg Tab 20 MG PO BID #30 Ref 0 TAB Discontinued Medications: Amoxicillin (Amoxicillin) 500 Mg Cap 500 MG PO TID Infection #30 Ref 0 CAP Sulfamethoxazole-Trimethoprim (Bactrim DS) 800-160 Mg Tab 1 TAB PO BID Infection #20 Ref 0 TAB Hawa Flores MD Aug 07, 2016 10:26
[2016-08-07] MEDS: HEPARIN SODIUM - SQ 10,000 UNITS/ML VIAL SQ SCH (10:50)
[2016-08-07] MEDS: AZITHROMYCIN 250 MG TAB PO SCH (10:50)
[2016-08-07] MEDS: SODIUM CHLORIDE 0.9% FLUSH 5 ML FLUSH FLUSH SCH (10:51)
[2016-08-07] MEDS: LISINOPRIL 20 MG TAB PO SCH (10:51)
[2016-08-07] MEDS ORDERED: AMOXICILLIN/CLAVULANATE K 875 MG TAB PO SCH (21:00)
[2016-08-16] MEDS ORDERED: GLIP5TAB8 PO ×2 (13:18→13:19)
== END 2016-08-07 12:11 | disposition home or self-care (01) | DRG 853 ==
LOC: PHED 15:42 → PHEDA 19:58 → PH3A 21:30
PROVIDERS: ADMIT Hospitalist; ATTEND Hospitalist
PROC: 0HBNXZZ Excision of Left Foot Skin, External Approach (ICD-10-PCS; principal; 2016-08-05)
DX: A41.9 Sepsis, unspecified organism (principal); J18.9 Pneumonia, unspecified organism; E11.621 Type 2 diabetes mellitus with foot ulcer; L03.116 Cellulitis of left lower limb; L97.529 Non-pressure chronic ulcer of other part of left foot with unspecified severity; E11.65 Type 2 diabetes mellitus with hyperglycemia; Z79.84 Long term (current) use of oral hypoglycemic drugs; Z91.14 Patient's other noncompliance with medication regimen; I10 Essential (primary) hypertension; E78.00 Pure hypercholesterolemia, unspecified
CPT/HCPCS: 71020; 73620; 73701; 80053; 81001; 82010; 82805; 82948; 83036; 83605; 83690; 83735; 84100; 84484; 85025; 87040; 87070; 87077; 87081; 87186; 87205; 87880; 93005; 96361; 96365; 96372; J0692; J1644; J1815; J2270; J2405; J2543; J3370; J7030; J7050; Q9967